=== PATIENT | female | born 1940 | race Caucasian/White ===

== ENCOUNTER 2018-03-20 18:41 | Inpatient (IN) | payer MEDICARE ==
[~2018-03-20] VITALS: Ht 165.1 cm; Wt 80.1 kg
[2018-03-20] MEDS ORDERED: EFFEXOR37.5 MG PO (18:46)
[2018-03-20] MEDS ORDERED: MULTI-DAY VITAM1 TAB PO (18:46)
[2018-03-20] MEDS ORDERED: RISPERDAL0.25 MG PO (18:46)
[2018-03-20] MEDS ORDERED: MIRALAX17 GM PO (18:47)
[2018-03-20] MEDS ORDERED: ACETAMINOPHEN500 M1 PO (18:47)
[2018-03-20 19:30] VITALS: BP 106/69
--- NOTE | 2018-03-20 19:30 | NUR ---
ASSUMED CARE OF PATIENT, PLACED ON BIPAP, RT TO BEDSIDE, DUONUB DONE. VITAL SIGNS ARE STABLE AT THIS TIME.
[2018-03-20 20:05] LABS: BASOPHILS 0 % (0-2); EOSINOPHILS 0 % (0-7); HEMATOCRIT 50.2 % (36.0-48.0); HEMOGLOBIN 16.8 g/dL (12-16); IMMATURE GRANULOCYTES 0.1 % (0-5); LYMPHOCYTES 7.7 % (15-50); MCH 29.4 pg (26.0-34.0); MCHC 33.5 g/dL (31.0-37.0); MCV 87.8 fL (80.0-100.0); MEAN PLATELET VOLUME 10.7 fL (7.4-10.4); MONOCYTES 5.5 % (2-11); NEUTROPHILS 86.7 % (40-80); PLATELET COUNT 334 10x3/uL (130-400); RBC 5.72 10x6/uL (4.00-5.40); RDW 13.5 % (11.5-14.5); WBC 9.9 10x3/uL (4.8-10.8)
[2018-03-20 20:30] VITALS: BP 104/56
--- NOTE | 2018-03-20 20:30 | NUR ---
PT RESTING QUIETLY, VITAL SIGNS STABLE AT THIS TIME.
[2018-03-20 21:25] VITALS: BP 105/27
--- NOTE | 2018-03-20 21:25 | NUR ---
PT ADMIT VIA ER NURSING STAFF ON NON-REBREATHER. SHE IS ABLE TO STATE HER NAME, BUT SHE IS CONFUSED ON PLACE, TIME AND SITUATION. PERRLA, 3 MM, BRISK REACTION TO LIGHT. TOP AND BOTTOM DENTURES IN PLACE, PT REFUSES TO REMOVE THEM. RT AT BEDSIDE. BIPAP ON @ 40%. RR SHALLOW, DIMINISHED BREATH SOUNDS HEARD BILAT THROUGHOUT ALL LOBES. S1S2 AUDIBLE, NSR SHOWING ON MONITOR. TIGHT PARAMETERS SET ON ICU MONITORS. ABD IS DISTENDED AND SOFT, BS HYPOACTIVE X4, INGUINAL HERNIA PROTRUDING IN RLQ. ORTIZ CATH INTACT DRAINING CONCENTRATED YELLOW URINE. ORTIZ CATH PLACED BY [facility] ER STAFF. PAPERWORK IN CHART. RADIAL PULSES PALP. R ARM CONTRACTURE NOTED. PIV TO R WRIST INFUSING D5NS @ 75 ML/HR + ABX. L WRIST PIV S/L. WEAK PULSES PALP LOWER EXT. SCDS ON AND FUNCTIONING. BED ALARM ON. PT IS SCRATCHING AND ANXIOUS. REORIENTED. PARITAL LINEN CHANGE PROVIDED. MEPILEX DRESSING PLACED ON COCCYX, REDENED AREA NOTED, BLANCHABLE. L HIP SCABS/SORES, REDDNESS. CALL LIGHT IN REACH, BED IN LOWEST POSITION, WILL CONT CLOSE MONITORING IN ICU.
[2018-03-20 22:00] VITALS: BP 111/42
--- NOTE | 2018-03-20 22:00 | NUR ---
SON AT BEDSIDE TO COMPLETE HX ASSESSMENT. CAITLYN BRADFORD, PHONE NUMBER . HE STATED TO CALL HIS BROTHER, ROMELIA ALVARADO, IF HE DOES NOT ANSWER AT . PAPER COPY OF PHONE NUMBERS IN CHART.
[2018-03-20 23:00] VITALS: BP 123/35
--- NOTE | 2018-03-20 23:00 | NUR ---
REASSESSMENT COMPLETE. PT REMOVED PIV TO L WRIST, BANDAID PLACED ON WRIST. PARTIAL LINEN CHANGE PROVIDED. CATH TIP INTACT. REPOSITIONED FOR COMFORT. VSS. BIPAP ON. LORENE NICOLE BILE NOTED. WILL CONT WITH POC.
[2018-03-20 23:46] VITALS: BP 105/27; BMI 28.8
[2018-03-21] VITALS (24 sets, daily range): BP systolic 95–137; BP diastolic 27–68; Ht 165.1 cm; Wt 80.1 kg
--- NOTE | 2018-03-21 01:09 | NUR ---
REPORT RECEIVED, PATIENT IN BED ON BIPAP AT 40%. UNABLE TO FOLLOW COMMANDS, SPEECH GARBLED. RT NARE NGT TO LIWS, BROWN STOMACH CONTENT NOTED. RT WRIST PIV INFUSING NS AT 75 MLS/HR, RN Ara MOONEY HAS VERIFIED RATE WITH ER PHYSICIAN, NO SIGNS OF INFILTRATION OR INFECTION. MEPILEX DRESSING TO BUTTOCK/COCCYX, REDDNED AREA, BLANCHEABLE. SCABS/SORES TO LT HIP NOTED. RADIAL PULSES PALPABLE. PEDAL PULSES WEAK TO PALPATION. CALL LIGHT WITHIN REACH. WILL CONTINUE TO MONITOR.
--- NOTE | 2018-03-21 03:14 | NUR ---
REASSESSMENT COMPLETED PER FLOW SHEET, SEE FOR DETAILS. NO ACUTE DISTRESS NOTED. REPOSITIONED IN BED. CALL LIGHT WITHIN REACH. WILL CONTINUE TO MONITOR.
--- NOTE | 2018-03-21 05:00 | NUR ---
NO ACUTE CHANGES NOTED. WILL CONTINUE TO MONITOR.
--- NOTE | 2018-03-21 06:30 | NUR ---
DR. DAVIDSON'S RN PHYSICIAN OFFICE AT BEDSIDE, UPDATE GIVEN, QUESTIONS ANSWERED, DISCUSSED BP CONCERNS, NO NEW ORDERS RECEIVED. WILL CONTINUE TO MONITOR.
--- NOTE | 2018-03-21 07:00 | NUR ---
REC'D REPORT AND RESUMED CARE, ASSESSMENT COMPLETED PER FLOWSHEET, CONFUSED, ANSWERS TO NAME, CONFUSED, ANSWERS TO NAME, DOES FOLLOWS SIMPLE, COMMANDS. NO OTHER CHANGES FROM REPORTED ASSESSMENT
[2018-03-21 08:39] LABS: ALBUMIN 2.3 g/dL (3.4-5.0); BILIRUBIN - TOTAL 0.37 mg/dL (0.2-1.3); CALCIUM 9.3 mg/dL (8.5-10.1); CARBON DIOXIDE 33.7 mmol/L (21.0-32.0); CREATININE - SERUM 2.3 mg/dL (0.6-1.3); POTASSIUM - SERUM 3.7 mmol/L (3.5-5.1)
[2018-03-21 09:06] LABS: BASOPHILS 0 % (0-2); EOSINOPHILS 0 % (0-7); HEMATOCRIT 41.1 % (36.0-48.0); IMMATURE GRANULOCYTES 0.2 % (0-5); LYMPHOCYTES 9.1 % (15-50); MCH 29.8 pg (26.0-34.0); MCHC 34.1 g/dL (31.0-37.0); MCV 87.4 fL (80.0-100.0); MEAN PLATELET VOLUME 11.1 fL (7.4-10.4); MONOCYTES 6.1 % (2-11); NEUTROPHILS 84.6 % (40-80); PLATELET COUNT 331 10x3/uL (130-400); RDW 13.7 % (11.5-14.5)
[2018-03-21 09:08] LABS: WBC 12.9 10x3/uL (4.8-10.8)
--- NOTE | 2018-03-21 11:00 | NUR ---
YELLING OUT, TO BEDSIDE, CONFUSED, EASILY CONSOLED, ASSESSMENT COMPLETED PER PER SHU, NO CHANGE AT THIS TIME
--- NOTE | 2018-03-21 11:00 | NUR ---
NO ACUTE CHANGE FROM PREVIOUS, ASSESSMENT COMPLETED PER FLOWSHEET, VSS, CONTINUES TO YELL OUT, WITH MOVEMENT AND REPOSITIONING, TURNED TO RIGHT SIDE WITH PILLOW PROPPED TO BACK AND HEELS FLOATED
--- NOTE | 2018-03-21 12:00 | NUR ---
FAMILY AT BEDSIDE, STATUS UPDATE GIVEN, VOICES NO NEEDS AT THIS ITME, AWATINGTO SPEAKE WITH RE: POC
--- NOTE | 2018-03-21 13:15 | NUR ---
CALLED TO BEDSIDE, REPOSITIONED PATIENT UP AND TO THE CENTER ON BACK, NO OTHER NEEDS AT THIS TIME AWAITING TO SPEAK WITH DOCTORS
--- NOTE | 2018-03-21 13:25 | NUR ---
CALLED TO BEDSIDE BY FAMILY, STATUS UPDTE GIVEN, AWAITING TO SPEAKS WITH PHYSICIANS FOR POC, NO OTHER NEEDS AT THIS TIME
--- NOTE | 2018-03-21 15:00 | NUR ---
ASSESSMENT COMPLETED, NO ACUTE CHANGE FROM PREVIOUS ASSESSMENT, VSS, ORAL CARE COMPLETED, REPOSITIONED TO LEFT SIDE, WITH PILLOW TO BACK AND HEELS FLOATED
--- NOTE | 2018-03-21 18:45 | NUR ---
CM HERE FOR ANDREA, NOTED RISHI WORK FROM [place] 0N CHART FOR DNR, I FOLLOWED UP WITH SON CAITLYN TO CONFIRM STATUS AND HE STATES HE WOULD LIKE TO CHANGE PATIENTS CODE STATUS TO FULL CODE FOR NOW'
--- NOTE | 2018-03-21 19:28 | NUR ---
REPORT RECEIVED, SHIFT ASSESSMENT COMPLETED PER FLOW SHEET. PATIENT MAKING INCOMPREHENSIBLE SOUNDS, ATTEMPS TO OPEN/CLOSE EYES WHEN ASKED TO BUT DOES NOT FOLLOW OTHER COMMANDS. RT NARE NGT TO LIWS, DARK BROWN STOMACH CONTENT NOTED. 4 L O2 VIA NC. RT WRIST PIV INFUSING D5NS AT 75 MLS/HR. ORTIZ CATHETER TO GRAVITY SECURED, DRAINING YELLOW UOP. SEE FLOW SHEET FOR COMPLETE ASSESSMENT. CALL LIGHT WITHIN REACH. WILL CONTINUE TO MONITOR.
--- NOTE | 2018-03-21 21:00 | NUR ---
RESTING, NO ACUTE CHANGES NOTED, WILL CONTINUE TO MONITOR.
[2018-03-21 22:17] LABS: APPEARANCE CLEAR (CLEAR); BACTERIA MODERATE /hpf (NONE SEEN); BILIRUBIN NEGATIVE (NEGATIVE); COLOR YELLOW (YELLOW); EPITHELIAL CELLS 0-5 /hpf (0-5); GLUCOSE NEGATIVE (NEGATIVE); KETONE NEGATIVE (NEGATIVE); NITRITE NEGATIVE (NEGATIVE); PROTEIN TRACE mg/dL (NEGATIVE); SPECIFIC GRAVITY 1.015 (1.005-1.020); UROBILINOGEN NORMAL (NORMAL)
--- NOTE | 2018-03-21 23:14 | NUR ---
REASSESSMENT COMPLETED PER FLOW SHEET, SEE FOR DETAILS. ORAL CARE PROVIDED. VSS. WILL CONTINUE TO MONITOR.
[2018-03-22] VITALS (23 sets, daily range): BP systolic 129–195; BP diastolic 36–135
--- NOTE | 2018-03-22 01:00 | NUR ---
NO ACUTE CHANGES NOTED, WILL CONTINUE TO MONITOR.
--- NOTE | 2018-03-22 03:24 | NUR ---
REASSESSMENT COMPLETED PER FLOW SHEET, SEE FOR DETAILS. NO ACUTE CHANGES NOTED. VSS. WILL CONTINUE TO MONITOR.
[2018-03-22 04:13] LABS: BASOPHILS 0.1 % (0-2); EOSINOPHILS 0.2 % (0-7); HEMATOCRIT 39.7 % (36.0-48.0); HEMOGLOBIN 13.1 g/dL (12-16); IMMATURE GRANULOCYTES 0.2 % (0-5); LYMPHOCYTES 9.2 % (15-50); MCH 29.4 pg (26.0-34.0); MEAN PLATELET VOLUME 10.6 fL (7.4-10.4); MONOCYTES 8.7 % (2-11); NEUTROPHILS 81.6 % (40-80); PLATELET COUNT 299 10x3/uL (130-400); RBC 4.46 10x6/uL (4.00-5.40); WBC 10.9 10x3/uL (4.8-10.8)
[2018-03-22 04:22] LABS: ANION GAP 9.1 mmol/L (8-16); CALCIUM 8.8 mg/dL (8.5-10.1); CARBON DIOXIDE 36.7 mmol/L (21.0-32.0); POTASSIUM - SERUM 3.8 mmol/L (3.5-5.1)
[2018-03-22 04:48] LABS: CREATININE - SERUM 1.5 mg/dL (0.6-1.3)
--- NOTE | 2018-03-22 05:00 | NUR ---
NO ACUTE CHANGES NOTED, WILL CONTINUE TO MONITOR.
--- NOTE | 2018-03-22 07:00 | NUR ---
REC'D REPORT AND RESUMED CARE, AWAKE AND YELLING OUT, ANSWERS YES ANS NO QUESTIONS, FOLLOWS SIMPLE COMMANDS, ASSESSMENT COMPLETED PER FLOWSHEET, REPOSITIONED UP AND TO BACK, ORAL CARE WITH TOOTHETTES, DENTURES NOTED
--- NOTE | 2018-03-22 08:30 | NUR ---
YELLING OUT, TOUCHING ABDOMEN AND PELVIC AREA, ALSO SCRATCHING LEFT HIP, SCAB, SKINTEAR, AND SORES, TYELNOL 65OMG GIVEN PER NGT, TUBE CLAMPED
--- NOTE | 2018-03-22 09:28 | NUR ---
NUTRITION F/U CHART REVIEWED. PT CONTINUES NG TUBE LILIANA LIS. NO CURRENT NUTRITION SUPPORT. WILL MONITOR PT PROGRESS, DIET ADVANCMENT. RD FOLLOWING
--- NOTE | 2018-03-22 10:32 | NUR ---
BOBY FROM [facility], SHOWING POSITIVE BLOOD CULTURES, STAPH, WILL FAXX RESULTS, GIVEN FAX #
--- NOTE | 2018-03-22 14:30 | NUR ---
VERBAL TELEPHONE CONSENT REC'D FROM SON ROMELIA AND WTINESSED BY JACQUELIN JACK RN, FOR PENDING PICC OR CVL PLACEMENT
--- NOTE | 2018-03-22 16:15 | NUR ---
PICC LINE PLACE BY VASCULAR ACCESS NURSE WITHOUT DIFFICULTY, LINE OK'D FOR USE
--- NOTE | 2018-03-22 18:35 | MORECARE ---
CASE MANAGEMENT DISCHARGE SUMMARY PATIENT: RISSA ALVARADO UNIT: [id number] ADM DATE: 03/20/18 AGE: 77 : 42 SEX: F ROOM/BED: D.2314 AUTHOR: KARIE RAIN PHYSICIAN: REFERRING PHYSICIAN: ADAM ROWLEY MD DATE OF SERVICE: 03/22/18 Discharge Plan Patient Name: RISSA ALVARADO Facility: [facility]:[place] : 1940 Planned Disposition: Anticipated Discharge Date: Discharge Date: Expected LOS: Initial Reviewer: [email or web address] Initial Review Date: 03/20/2018 Generated: 03/22/18 7:35 pm Patient Name: RISSA ALVARADO Page [id number] at 1835 All edits/amendments must be made on the electronic document DICTATION DATE: 03/22/181834 DIRECTOR OF RETENTION: JESS 03/22/181834 RPT#: [id number] DC DATE: STATUS: ADM IN [facility] [address] [place] [address] END OF REPORT
--- NOTE | 2018-03-22 18:42 | MORECARE ---
CASE MANAGEMENT DISCHARGE SUMMARY PATIENT: RISSA ALVARADO UNIT: [id number] ADM DATE: 03/20/18 AGE: 77 : 42 SEX: F ROOM/BED: D.2314 AUTHOR: KARIE RAIN PHYSICIAN: REFERRING PHYSICIAN: ADAM ROWLEY MD DATE OF SERVICE: 03/22/18 Discharge Plan Patient Name: RISSA ALVARADO Facility: [facility]:[place] : 1940 Planned Disposition: Anticipated Discharge Date: Discharge Date: Expected LOS: Initial Reviewer: [email or web address] Initial Review Date: 03/20/2018 Generated: 03/22/18 7:42 pm DCPIA - Discharge Planning Initial Assessment Updated by [email or web address]: Naty Teran on 03/22/18 6:37 pm * Is the patient Alert and Oriented? No * PCP COREEN HOOVER [phone] * Pharmacy [facility] [phone] * Preadmission Environment [employer] * Facility Name [facility] [address] * ADLs Total Dependent * List name and contact numbers for known caregivers / representatives who currently or will assist patient after discharge: CAITLYN ALVARADO DAVID [phone] ROMELIA HERNANDEZ [phone] * Verbal permission to speak to the caregivers and representatives has been obtained from the patient. N/A * Community resources currently utilized None * Additional services required to return to the preadmission environment? No * Can the patient safely return to the preadmission environment? Yes Last DP export: 03/22/18 5:35 p Patient Name: RISSA ALVARADO Page 48870 at 1842 All edits/amendments must be made on the electronic document DICTATION DATE: 03/22/181841 DETECTIVE SERGEANT: JESS 03/22/181841 RPT#: [id number] DC DATE: STATUS: ADM IN [facility] [address] [place] [address] END OF REPORT
--- NOTE | 2018-03-22 18:50 | MORECARE ---
CASE MANAGEMENT DISCHARGE SUMMARY PATIENT: RISSA ALVARADO UNIT: [id number] ADM DATE: 03/20/18 AGE: 77 : 42 SEX: F ROOM/BED: D.2314 AUTHOR: KOFFIDOC PHYSICIAN: REFERRING PHYSICIAN: ADAM ROWLEY MD DATE OF SERVICE: 03/22/18 Discharge Plan Patient Name: RISSA ALVARADO Facility: [facility]:[place] : 1940 Planned Disposition: Anticipated Discharge Date: Discharge Date: Expected LOS: Initial Reviewer: [email or web address] Initial Review Date: 03/20/2018 Generated: 03/22/18 7:49 pm Comments DCP- Discharge Planning Updated by [email or web address]: Naty Teran on 03/22/18 5:[address] Patient Name: RISSA ALVARADO Admission Status: ER Accout number: [id number] Admission Date: 03-20-2018 : 1940 Admission Diagnosis:PNEUMONIA, UNSPECIFIED ORGANISM Attending: ADAM ROWLEY Current LOS: 2 Anticipated DC Date: Planned Disposition: Primary Insurance: MEDICARE A & B Discharge Planning Comments: CM attempted to meet with patient regarding discharge planning/ needs. Patient is confused and non verbal. Patient is a resident at [facility]) [address], . Patient was in detention Medicaid bed at facility and plans are for patient to return upon discharge. CM will continue to follow and assist as needed with discharge planning / needs. Multiple Knife Edge Trimmer Operator: Naty Teran DCPIA - Discharge Planning Initial Assessment Updated by [email or web address]: Naty Teran on 03/22/18 6:37 pm * Is the patient Alert and Oriented? No * PCP COREEN HOOVER [phone] * [facility] [phone] * Preadmission Environment [facility] * Facility Name [facility]) [address] * ADLs Total Dependent * List name and contact numbers for known caregivers / representatives who currently or will assist patient after discharge: CAITLYN ALVARADO- [facility]- [phone] ROMELIA ALVARADO - [facility] - [phone] * Verbal permission to speak to the caregivers and representatives has been obtained from the patient. N/A * Community resources currently utilized None * Additional services required to return to the preadmission environment? No * Can the patient safely return to the preadmission environment? Yes Last DP export: 03/22/18 5:42 p Patient Name: RISSA ALVARADO Page 76519 at 1850 All edits/amendments must be made on the electronic document DICTATION DATE: 03/22/181848 DRIVER'S LICENSE EXAMINER: JESS 03/22/181848 RPT#: [id number] DC DATE: STATUS: ADM IN [facility] [address] [place] [address] END OF REPORT
--- NOTE | 2018-03-22 19:10 | NUR ---
Received patient resting in bed with eyes closed, assessment completed per flowsheet. Patient disoriented to time/place/situation, speech is garbled. NGT to LIWS, small dark drainage noted. S1/S2 noted NSR with rare PVC on telemetry and HR 91, rythmic and regular. Breathing is shallow on 3L via High flow NC with O2 sat 97%, lung sounds diminished throughout. Abdomen is distended with herniation noted R upper, bowel sounds hypoactive x4. Bueno secured, clear yellow urine noted. Contracture noted RUE with weakness noted remaining, all pulses palpable with cap refill < 3 sec. Skin warm/dry with reddened area buttocks/coccyx/boogie area, scab/sore noted L hip. Patient nods head to questions, repositioned for comfort. No further needs at this time, see flowsheetf or details. All VSS and will continue to monitor.
--- NOTE | 2018-03-22 21:00 | NUR ---
Patient laying in bed with eyes open, HS meds given without difficulty. Abdomen is round/soft with herniation noted, bowel sounds hypoactive x4. All pulses palpable with cap refill < 3 sec, skin warm/dry. Repositioned, all VSS and will continue to monitor.
--- NOTE | 2018-03-22 23:00 | NUR ---
Reassessment completed per flowsheet, no changes from previous assessment. Speech is garbled, slight disorientation to time/place/situation. Abdomen is round/soft with tenderness noted, bowel sounds hypoactive x4. RUE contracture noted, remaining pulses palpable with cap refill < 3 sec. Repositioned for comfort, see flowsheet for details. All VSS and will continue to monitor.
[2018-03-23] VITALS (21 sets, daily range): BP systolic 139–181; BP diastolic 48–87
--- NOTE | 2018-03-23 01:00 | NUR ---
Patient laying in bed yelling for water, ice chips provided as ordered. Small scratches noted lower abdomen/L upper thigh, cleaned with barrier cream provided. Repositioned, all VSS and will continue to monitor.
--- NOTE | 2018-03-23 03:00 | NUR ---
Reassessment completed per flowsheet, no changes from previous assessment. Patient disoriented to time/place/situation, follows commands with garbled speech. S1/S2 noted NSR with rare PVC on telemetry, rythmic and regular. Breathing is shallow on 3L via NC, lung sounds diminished throughout. Abdomen is distended/soft with herniation noted, hypoactive x4. RUE contracture with remaining pulses palpable, skin warm/dry. Patient denies pain but C/O of severe itching, scratches noted lower abdomen/L upper thigh with PRN Benadryl given as ordered. Repositioned, see flowsheet for details. All VSS and will continue to monitor.
--- NOTE | 2018-03-23 05:00 | NUR ---
Patient resting in bed with eyes closed, AM labs collected with out difficulty. Electrolyte replacement per protocol, repositioned with no further needs. Will continue to monitor.
[2018-03-23 05:02] LABS: BASOPHILS 0.1 % (0-2); EOSINOPHILS 0.7 % (0-7); HEMATOCRIT 38.2 % (36.0-48.0); HEMOGLOBIN 12.2 g/dL (12-16); IMMATURE GRANULOCYTES 0.5 % (0-5); LYMPHOCYTES 7.6 % (15-50); MCH 28.8 pg (26.0-34.0); MCHC 31.9 g/dL (31.0-37.0); MCV 90.1 fL (80.0-100.0); MEAN PLATELET VOLUME 10.7 fL (7.4-10.4); MONOCYTES 8.4 % (2-11); NEUTROPHILS 82.7 % (40-80); PLATELET COUNT 300 10x3/uL (130-400); RBC 4.24 10x6/uL (4.00-5.40); WBC 12.2 10x3/uL (4.8-10.8)
[2018-03-23 05:16] LABS: ANION GAP 9.3 mmol/L (8-16); CALCIUM 8.5 mg/dL (8.5-10.1); CARBON DIOXIDE 32.9 mmol/L (21.0-32.0)
[2018-03-23 05:25] LABS: CREATININE - SERUM 0.9 mg/dL (0.6-1.3)
[2018-03-23 05:26] LABS: POTASSIUM - SERUM 3.2 mmol/L (3.5-5.1)
--- NOTE | 2018-03-23 07:00 | NUR ---
awakes easily, talks loudly. cooperative during exam. ng to low suction brown liquid. small stool. pericare done line changed. tolerated well. repositioned. right upper arm picc infusing with d5ns at kvo. right wrist infusing with procalamine at 50 ml hour. jerez cath patent and draining clear edith urine.
--- NOTE | 2018-03-23 08:00 | NUR ---
family here requestion to talk with dr. bran. dr. bran paged.
--- NOTE | 2018-03-23 09:35 | NUR ---
NUTRITION F/U PT REMAINS NPO WITH NG TO SUCTION. PROCALAMINE AT 125 CC/HR. WILL CONTINUE TO MONITOR PT PROGRESS. ASSIST WITH TUBE FEEDS IF NEEDED. RD FOLLOWING
--- NOTE | 2018-03-23 09:42 | NUR ---
DR. READ AT BEDSIDE, SPOKE AT LENGTH WITH FAMILY ABOUT PT PLAN OF CARE, HOSPICE CONSULTED AT THIS TIME
--- NOTE | 2018-03-23 10:15 | NUR ---
SOFIA WITH CASE MANAGEMENT CALLED [facility] ABOUT TRANSFERING PATEINT BACK FOR HOSPICE CARE. FAMILY IS HERE AND IN AGREEMENT
--- NOTE | 2018-03-23 11:18 | MORECARE ---
CASE MANAGEMENT DISCHARGE SUMMARY PATIENT: RISSA ALVARADO UNIT: [id number] ADM DATE: 03/20/18 AGE: 77 : 42 SEX: F ROOM/BED: D.2314 AUTHOR: KOFFIDOC PHYSICIAN: REFERRING PHYSICIAN: ADAM ROWLEY MD DATE OF SERVICE: 03/23/18 Discharge Plan Patient Name: RISSA ALVARADO Facility: [facility]:[place] : 1940 Planned Disposition: Anticipated Discharge Date: Discharge Date: Expected LOS: Initial Reviewer: [email or web address] Initial Review Date: 03/20/2018 Generated: 03/23/18 12:18 pm Comments DCP- Discharge Planning Updated by [email or web address]: Naty Teran on 03/22/18 5:[address] Patient Name: RISSA ALVARADO Admission Status: ER Accout number: [id number] Admission Date: 03-20-2018 : 1940 Admission Diagnosis:PNEUMONIA, UNSPECIFIED ORGANISM Attending: ADAM ROWLEY Current LOS: 2 Anticipated DC Date: Planned Disposition: Primary Insurance: MEDICARE A & B Discharge Planning Comments: CM attempted to meet with patient regarding discharge planning/ needs. Patient is confused and non verbal. Patient is a resident at [facility]) [address], . Patient was in [facility] Medicaid bed at facility and plans are for patient to return upon discharge. CM will continue to follow and assist as needed with discharge planning / needs. Sales Market Leader: Naty Teran DCPIA - Discharge Planning Initial Assessment Updated by [email or web address]: Naty Teran on 03/22/18 6:37 pm * Is the patient Alert and Oriented? No * PCP COREEN HOOVER [phone] * [facility] [phone] * Preadmission Environment Manager [employer] * Facility Name [facility] [address] * ADLs Total Dependent * List name and contact numbers for known caregivers / representatives who currently or will assist patient after discharge: CAITLYN ALVARADO- [facility]- [phone] ROMELIA ALVARADO - [facility] - [phone] * Verbal permission to speak to the caregivers and representatives has been obtained from the patient. N/A * Community resources currently utilized None * Additional services required to return to the preadmission environment? No * Can the patient safely return to the preadmission environment? Yes External Providers External Provider: OTHER-OTHER Next Contact Date: Service Request Date: Service Type: Resolution: Reviewer: Comments: Last DP export: 03/22/18 5:49 p Patient Name: RISSA ALVARADO Page 99240 at 1118 All edits/amendments must be made on the electronic document DICTATION DATE: 03/23/181116 CODING AUDITOR: JESS 03/23/181116 RPT#: [id number] DC DATE: STATUS: ADM IN [facility] [address] [place] [address] END OF REPORT
--- NOTE | 2018-03-23 14:00 | NUR ---
NG REMOVED PER DR. READ ORDER. IV RIGHT WRIST DC'D LEAKING. PROCALAMINE PLACED IN PICC LINE.
--- NOTE | 2018-03-23 16:52 | MORECARE ---
CASE MANAGEMENT DISCHARGE SUMMARY PATIENT: RISSA ALVARADO UNIT: [id number] ADM DATE: 03/20/18 AGE: 77 : 42 SEX: F ROOM/BED: D.2314 AUTHOR: KOFFIDOC PHYSICIAN: REFERRING PHYSICIAN: ADAM ROWLEY MD DATE OF SERVICE: 03/23/18 Discharge Plan Patient Name: RISSA ALVARADO Facility: [facility]:[place] : 1940 Planned Disposition: Anticipated Discharge Date: Discharge Date: Expected LOS: Initial Reviewer: [email or web address] Initial Review Date: 03/20/2018 Generated: 03/23/18 5:52 pm Comments DCP- Discharge Planning Updated by [email or web address]: Naty Teran on 03/22/18 5:[address] Patient Name: RISSA ALVARADO Admission Status: ER Accout number: [id number] Admission Date: 03-20-2018 : 1940 Admission Diagnosis:PNEUMONIA, UNSPECIFIED ORGANISM Attending: ADAM ROWLEY Current LOS: 2 Anticipated DC Date: Planned Disposition: Primary Insurance: MEDICARE A & B Discharge Planning Comments: CM attempted to meet with patient regarding discharge planning/ needs. Patient is confused and non verbal. Patient is a resident at [facility]) [address], . Patient was in half-way Medicaid bed at facility and plans are for patient to return upon discharge. CM will continue to follow and assist as needed with discharge planning / needs. Emergency Management Consultant: Naty Teran DCPIA - Discharge Planning Initial Assessment Updated by [email or web address]: Naty Teran on 03/22/18 6:37 pm * Is the patient Alert and Oriented? No * PCP COREEN HOOVER [phone] * [facility] [phone] * Preadmission Environment [employer] * Facility Name [facility]) [address] * ADLs Total Dependent * List name and contact numbers for known caregivers / representatives who currently or will assist patient after discharge: [facility] [phone] ROMELIA ALVARADO - [facility] - [phone] * Verbal permission to speak to the caregivers and representatives has been obtained from the patient. N/A * Community resources currently utilized None * Additional services required to return to the preadmission environment? No * Can the patient safely return to the preadmission environment? Yes External Providers External Provider: JONES Ashley Next Contact Date: Service Request Date: Service Type: Resolution: Reviewer: Comments: Last DP export: 03/23/18 10:18 a Patient Name: RISSA ALVARADO Page 28278 at 1652 All edits/amendments must be made on the electronic document DICTATION DATE: 03/23/181650 HOME IMPROVEMENT CONTRACTOR: JESS 03/23/181650 RPT#: [id number] DC DATE: STATUS: ADM IN [facility] [address] [place] [address] END OF REPORT
--- NOTE | 2018-03-23 17:06 | MORECARE ---
CASE MANAGEMENT DISCHARGE SUMMARY PATIENT: RISSA ALVARADO UNIT: [id number] ADM DATE: 03/20/18 AGE: 77 : 42 SEX: F ROOM/BED: D.2314 AUTHOR: KOFFI,DOC PHYSICIAN: REFERRING PHYSICIAN: ADAM ROWLEY MD DATE OF SERVICE: 03/23/18 Discharge Plan Patient Name: RISSA ALVARADO Facility: [facility]:[place] : 1940 Planned Disposition: Anticipated Discharge Date: Discharge Date: Expected LOS: Initial Reviewer: [email or web address] Initial Review Date: 03/20/2018 Generated: 03/23/18 6:06 pm Comments DCP- Discharge Planning Updated by [email or web address]: Naty Teran on 03/23/18 4:[address] CM notified this am that patient has order for Hospice consult. CM met with family son Caitlyn and he requested if possible he would like patient to be transferred back to [facility] for hospice care. CM contacted Rita at [place] and she requested updated clinical. CM faxed records to Rita. Rita called CM back and stated they would accept patient back to facility. CM explained that patient will be needing Hospice care. Rita stated she would get in touch with son and find out which hospice provider and let CM know if they could accept patient today. Rita called stated they could accept patient back today and family requested [facility] and they could accept patient today as well. Rita informed CM that patient would require a ANTONIO before she could return. CM filled out ANTONIO and faxed it in to [facility]. CM awaiting ANTONIO determination before possible discharge. DCP- Discharge Planning Updated by [email or web address]: Naty Teran on 03/22/18 5:[address] Patient Name: RISSA ALVARADO Admission Status: ER Accout number: [id number] Admission Date: 03-20-2018 : 1940 Admission Diagnosis:PNEUMONIA, UNSPECIFIED ORGANISM Attending: ADAM ROWLEY Current LOS: 2 Anticipated DC Date: Planned Disposition: Primary Insurance: MEDICARE A & B Discharge Planning Comments: CM attempted to meet with patient regarding discharge planning/ needs. Patient is confused and non verbal. Patient is a resident at [facility] ([facility] [address], . Patient was in jail Medicaid bed at facility and plans are for patient to return upon discharge. CM will continue to follow and assist as needed with discharge planning / needs. Radiology Equipment Servicer: Naty Teran DCPIA - Discharge Planning Initial Assessment Updated by [email or web address]: Naty Teran on 03/22/18 6:37 pm * Is the patient Alert and Oriented? No * PCP COREEN HOOVER [phone] * Pharmacy [facility] [phone] * Preadmission Environment Assisted Skilled Nursing * Facility Name [facility] ([facility]) [address] * ADLs Total Dependent * List name and contact numbers for known caregivers / representatives who currently or will assist patient after discharge: CAITLYN HERNANDEZ [phone] ROMELIA HERNANDEZ [phone] * Verbal permission to speak to the caregivers and representatives has been obtained from the patient. N/A * Community resources currently utilized None * Additional services required to return to the preadmission environment? No * Can the patient safely return to the preadmission environment? Yes Last DP export: 03/23/18 3:52 p Patient Name: RISSA ALVARADO Page 37668 at 1706 All edits/amendments must be made on the electronic document DICTATION DATE: 03/23/181705 STARTING GATE DRIVER: JESS 03/23/181705 RPT#: [id number] DC DATE: STATUS: ADM IN [facility] [address] [place] [address] END OF REPORT
--- NOTE | 2018-03-23 19:05 | NUR ---
Reassessment completed per flowsheet, patient resting in bed with eyes closed. S1/S2 noted NSR on telemetry, rythmic and regular. Breathing is shallow on 3L via High flow with O2 sat 96%, lung sounds diminished throughout. Abdomen is distended with herniation and bowel sounds hypoactive x4, tender. RUE contracture noted and remaining pulses palpable, cap refill < 3 sec with skin warm/dry. Denies pain or other needs at this time, repositioned for comfort. See flowsheet for details, all VSS and will continue to monitor.
--- NOTE | 2018-03-23 22:30 | NUR ---
Patient xfer to 1212 via bed, report called to RN on MED III.
--- NOTE | 2018-03-23 22:41 | NUR ---
PT ARRIVED TO ROOM 1212, PT YELLING WORDS THAT ARE GARBLED AND DO NOT MAKE SINCE. PT HAS NO S/S OF DISTRESS. PROCAL INFUSING ORDERED. NAME AND DATE PLACED ON BOARD. BEDALARM ON AND ACTIVE. TEMP IS 98.2 BP 173/58 PULSE 78 RR 18 O2 94% 3L O2 NC.
--- NOTE | 2018-03-24 00:15 | NUR ---
PT RESTING IN BED. DENIES ANY NEEDS. UNABLE TO UNDERSTAND SPEECH AT ALL TIMES. PT HAS GARBLED SPEECH AND GETS UPSET WHEN SHE CANT SPEAK WHAT SHE WANTS. PT HAS NO S/S OF DISTRESS. BEDLOW AND CALL LIGHT IN REACH. WILL CPOC
--- NOTE | 2018-03-24 02:34 | NUR ---
PT ASLEEP. RESP EVEN AND UNLABORED. 3L O2 OXYMIZER PT BEDLOW AND CALL LIGHT IN REACH. ALARM ON AND ACTIVE. PT HAS NO S/S OF DISTRESS. RIGHT UPPER ARM PICC, RIGHT FLACCID, HAND CONTRACTED. WILL CPOC
--- NOTE | 2018-03-24 03:54 | NUR ---
PT YELLING OUT AND MAKING A COUGHING SOUND. PT DENIES ANY NEEDS. NO S/S OF DISTRESS. PT BEDLOW AND CALL LIGHT IN REACH. PT HAS MONITOR ON, 80 SR.
[2018-03-24 04:00] VITALS: BP 164/52
--- NOTE | 2018-03-24 05:21 | NUR ---
PT YELLING OUT IN GARBLED SPEECH. WANTING ICE CHIPS. FRUSTRATED AND FACE TURNING RED WHILE TRYING TO TALK. PT REPOSITIONED AND GAVE PT ONE ICE CHIP FOR COMFORT. PT HAS NO S/S OF DISTRESS. BEDLOW AND CALL LIGHT IN REACH. WILL CPOC
--- NOTE | 2018-03-24 07:50 | NUR ---
ASSESSMENT COMPLETE. R PICC LINE PATENT. ORTIZ PATENT DRAINING YELLOW URINE. O2 3L NC IN USE. TEACHING ARTIST SHOWING SR 87 PER TECH. DISORIENTED TO TIME,PLACE, AND SITUATION. R SIDED WEAKNESS. R HAND CONTRACTED. YELLS OUT OCCASIONALLY FOR WATER.
--- NOTE | 2018-03-24 10:22 | MORECARE ---
CASE MANAGEMENT DISCHARGE SUMMARY PATIENT: RISSA ALVARADO UNIT: [id number] ADM DATE: 03/20/18 AGE: 77 : 42 SEX: F ROOM/BED: D.1212 AUTHOR: KOFFI,DOC PHYSICIAN: REFERRING PHYSICIAN: ADAM ROWLEY MD DATE OF SERVICE: 03/24/18 Discharge Plan Patient Name: RISSA ALVARADO Facility: [facility]:[place] : 1940 Planned Disposition: [facility] Facility w Plan Readm Anticipated Discharge Date: 03/24/18 Discharge Date: Expected LOS: 4 Initial Reviewer: [email or web address] Initial Review Date: 03/20/2018 Generated: 03/24/18 11:21 am Comments DCP- Discharge Planning Updated by [email or web address]: Carol Pineda on 03/24/18 9:[address] Patient Name: RISSA ALVARADO Admission Status: ER Accout number: [id number] Admission Date: 03-20-2018 : 1940 Admission Diagnosis:PNEUMONIA, UNSPECIFIED ORGANISM Attending: ADAM ROWLEY Current LOS: 4 Anticipated DC Date: 03-24-2018 Planned Disposition: [facility] w Plan Readm Primary Insurance: MEDICARE A & B Discharge Planning Comments: CM FAXED ANTONIO DETERMINATION TO [facility] AT [phone]. CM THEN SPOKE WITH NATHEN AT THE NURSING FACILITY AND THEY CAN ACCEPT PATIENT BACK TODAY. GROUP HOME PHONE NUMBER IS [phone]. [facility] STATES HOSPICE IS IN PLACE WHEN SHE ARRIVES AT THEIR FACILITY. CM TO FOLLOW AND ASSIST NEEDED WITH DC PLANNING/NEEDS. Keyboard Instrument Repairer: Carol Pineda DCP- Discharge Planning Updated by [id number]: Naty Teran on 03/23/18 4:[address] CM notified this am that patient has order for Hospice consult. CM met with family son Caitlyn and he requested if possible he would like patient to be transferred back to [facility] for hospice care. CM contacted Nathen at [place] and she requested updated clinical. CM faxed records to Nathen. Nathen called CM back and stated they would accept patient back to facility. JESSICA explained that patient will be needing Hospice care. Nathen stated she would get in touch with son and find out which hospice provider and let CM know if they could accept patient today. Nathen called stated they could accept patient back today and family requested [facility] and they could accept patient today as well. Natehn informed CM that patient would require a ANTONIO before she could return. CM filled out ANTONIO and faxed it in to [facility]. CM awaiting ANTONIO determination before possible discharge. DCP- Discharge Planning Updated by [email or web address]: Naty Teran on 03/22/18 5:[address] Patient Name: RISSA ALVARADO Admission Status: ER Accout number: [id number] Admission Date: 03-20-2018 : 1940 Admission Diagnosis:PNEUMONIA, UNSPECIFIED ORGANISM Attending: ADAM ROWLEY Current LOS: 2 Anticipated DC Date: Planned Disposition: Primary Insurance: MEDICARE A & B Discharge Planning Comments: CM attempted to meet with patient regarding discharge planning/ needs. Patient is confused and non verbal. Patient is a resident at [facility] ([facility]) [address], . Patient was in termite helper Medicaid bed at facility and plans are for patient to return upon discharge. CM will continue to follow and assist as needed with discharge planning / needs. Keyboard Instrument Repairer: Naty Teran DCPIA - Discharge Planning Initial Assessment Updated by [email or web address]: Naty Parul on 03/22/18 6:37 pm * Is the patient Alert and Oriented? No * PCP COREEN HOOVER [phone] * Pharmacy [facility] [phone] * Preadmission Environment Field Crew Chief Long Term * Facility Name [facility] ([facility]) [address] * ADLs Total Dependent * List name and contact numbers for known caregivers / representatives who currently or will assist patient after discharge: CAITLYN HERNANDEZ- [phone] ROMELIA HERNANDEZ - [phone] * Verbal permission to speak to the caregivers and representatives has been obtained from the patient. N/A * Community resources currently utilized None * Additional services required to return to the preadmission environment? No * Can the patient safely return to the preadmission environment? Yes Last DP export: 03/23/18 4:06 p Patient Name: RISSA ALVARADO Page 48666 at 1022 All edits/amendments must be made on the electronic document DICTATION DATE: 03/24/18 1021 SUSTAINABILITY COMMUNICATOR: JESS 03/24/18 1021 RPT#: [id number] DC DATE: STATUS: ADM IN [facility] [address] [place] [address] END OF REPORT
--- NOTE | 2018-03-24 11:00 | NUR ---
RESTING QUIETLY WITH EYES CLOSED. RESP EVEN,NONLABORED.
--- NOTE | 2018-03-24 14:25 | NUR ---
REPORT CALLED TO CHUCKY AT [facility] IN [facility].
--- NOTE | 2018-03-24 14:31 | NUR ---
ORTIZ CATHEER REMOVED. CATHETER TIP INTACT. 400 CC'S OF YELLOW URINE EMPTIED.
--- NOTE | 2018-03-24 14:35 | NUR ---
NOTIFIED ROMELIA THAT PATIENT WILL BE TRANSFERED BACK TO ALF TODAY.
--- NOTE | 2018-03-24 14:51 | NUR ---
ORDER RECEIVED FOR PICC LINE REMOVAL DUE TO PT BEING DISCHARGE. LENGTH OF LINE VERIFIED BY VASCULAR ACCESS NURSE NOTE TO BE 42CM. LINE IS IN R AC. PT IS NOT COHERENT BUT EXPLAINED PROCEDURE ANYWAY TO PT. HANDS WASHED AND GLOVES DONNED. DRESSING REMOVED. NO SIGNS OF INFECTION NOR EDEMA NOTED. SITE CLEANED WITH CHLORPREP. CATHETER GENTLY WITHDRAWN AT ONE INCH INCREMENTS AND PARALLEL TO SKIN. CATHETER SUCCESSFULLY REMOVED AT 42CM WITH TIP INTACT. NO SIGNS OF INFECTION. PRESSURE HELD FOR 5 MIN AND BETADINE OINT APPLIED ALONG WITH 4X4S AND TEGADERM. PT LILIANA PROCEDURE WELL.
--- NOTE | 2018-03-24 17:20 | NUR ---
DC'D TO [facility] IN [place], [place] VIA AMBULANCE.
--- NOTE | 2018-03-25 08:23 | MORECARE ---
CASE MANAGEMENT DISCHARGE SUMMARY PATIENT: RISSA ALVARADO UNIT: [id number] ADM DATE: 03/20/18 AGE: 77 : 42 SEX: F ROOM/BED: D.1212 AUTHOR: KOFFI,DOC PHYSICIAN: REFERRING PHYSICIAN: ADAM ROWLEY MD DATE OF SERVICE: 03/25/18 Discharge Plan Patient Name: RISSA ALVARADO Facility: [facility]:[place] : 1940 Planned Disposition: [facility] Facility w Plan Readm Anticipated Discharge Date: 03/24/18 Discharge Date: 03/24/2018 Expected LOS: 4 Initial Reviewer: [email or web address] Initial Review Date: 03/20/2018 Generated: 03/25/18 9:23 am Comments DCP- Discharge Planning Updated by [id number]: Carol Pineda on 03/24/18 9:[address] Patient Name: RISSA ALVARADO Admission Status: ER Accout number: [id number] Admission Date: 03-20-2018 : 1940 Admission Diagnosis:PNEUMONIA, UNSPECIFIED ORGANISM Attending: ADAM ROWLEY Current LOS: 4 Anticipated DC Date: 03-24-2018 Planned Disposition: [facility] w Plan Readm Primary Insurance: MEDICARE A & B Discharge Planning Comments: CM FAXED ANTONIO DETERMINATION TO [facility] AT [phone]. CM THEN SPOKE WITH NATHEN AT THE NURSING FACILITY AND THEY CAN ACCEPT PATIENT BACK TODAY. DETENTION PHONE NUMBER IS [phone]. [facility] IN PL[facility] WHEN SHE ARRIVES AT THEIR FACILITY. CM TO FOLLOW AND ASSIST NEEDED WITH DC PLANNING/NEEDS. Stem Roller: Carol Pineda DCP- Discharge Planning Updated by [email or web address]: Naty Teran on 03/23/18 4:[address] CM notified this am that patient has order for Hospice consult. CM met with family son Caitlyn and he requested if possible he would like patient to be transferred back to [facility] for hospice care. CM contacted Nathen at [place] and she requested updated clinical. CM faxed records to Nathen. Nathen called CM back and stated they would accept patient back to facility. JESSICA explained that patient will be needing Hospice care. Nathen stated she would get in touch with son and find out which hospice provider and let CM know if they could accept patient today. Nathen called stated they could accept patient back today and family requested [facility] and they could accept patient today as well. Nathen informed CM that patient would require a ANTONIO before she could return. CM filled out ANTONIO and faxed it in to [facility]. CM awaiting ANTONIO determination before possible discharge. DCP- Discharge Planning Updated by [email or web address]: Naty Teran on 03/22/18 5:[address] Patient Name: RISSA ALVARADO Admission Status: ER Accout number: [id number] Admission Date: 03-20-2018 : 1940 Admission Diagnosis:PNEUMONIA, UNSPECIFIED ORGANISM Attending: ADAM ROWLEY Current LOS: 2 Anticipated DC Date: Planned Disposition: Primary Insurance: MEDICARE A & B Discharge Planning Comments: CM attempted to meet with patient regarding discharge planning/ needs. Patient is confused and non verbal. Patient is a resident at [facility] ([facility]) [address], . Patient was in rehabilitation director Medicaid bed at facility and plans are for patient to return upon discharge. CM will continue to follow and assist as needed with discharge planning / needs. Stem Roller: Naty Teran DCPIA - Discharge Planning Initial Assessment Updated by [id number]: Naty Teran on 03/22/18 6:37 pm * Is the patient Alert and Oriented? No * PCP COREEN HOOVER [phone] * Pharmacy REPLAC[facility] [phone] * Preadmission Environment [facility] * Facility Name [facility] ([facility]) [address] * ADLs Total Dependent * List name and contact numbers for known caregivers / representatives who currently or will assist patient after discharge: CAITLYN HERNANDEZ- [phone] ROMELIA HERNANDEZ - [phone] * Verbal permission to speak to the caregivers and representatives has been obtained from the patient. N/A * Community resources currently utilized None * Additional services required to return to the preadmission environment? No * Can the patient safely return to the preadmission environment? Yes Last DP export: 03/24/18 9:21 a Patient Name: RISSA ALVARADO Page 64716 at 0823 All edits/amendments must be made on the electronic document DICTATION DATE: 03/25/18821 EXTRUDER OPERATOR HELPER: JESS 03/25/18821 RPT#: [id number] DC DATE:03/24/18 STATUS: DIS IN [facility] [address] [place] [address] END OF REPORT
== END 2018-03-24 17:20 | disposition home health service (06) | DRG 177 ==
LOC: D.ER 18:41 → D.ICU 19:40 → D.M3 03-23 22:15
PROVIDERS: Emergency Medicine; Internal Medicine Nephrology; ADMIT Family Medicine
PROC: 5A09357 Assistance with Respiratory Ventilation, Less than 24 Consecutive Hours, Continuous Positive Airway Pressure (ICD-10-PCS; principal; 2018-03-20)
PROC: 05HY33Z Insertion of Infusion Device into Upper Vein, Percutaneous Approach (ICD-10-PCS; 2018-03-22)
DX: J69.0 Pneumonitis due to inhalation of food and vomit (principal); R40.2223 Coma scale, best verbal response, incomprehensible words, at hospital admission; K43.0 Incisional hernia with obstruction, without gangrene; N17.9 Acute kidney failure, unspecified; N39.0 Urinary tract infection, site not specified; I69.351 Hemiplegia and hemiparesis following cerebral infarction affecting right dominant side; D75.89 Other specified diseases of blood and blood-forming organs; I10 Essential (primary) hypertension; E78.5 Hyperlipidemia, unspecified; G47.33 Obstructive sleep apnea (adult) (pediatric); F20.9 Schizophrenia, unspecified; E86.0 Dehydration; R40.2143 Coma scale, eyes open, spontaneous, at hospital admission; R40.2353 Coma scale, best motor response, localizes pain, at hospital admission